=== PATIENT | male | born 2000 | race Caucasian/White ===

== ENCOUNTER 2018-05-24 01:04 | Inpatient (IN) | payer OTHER ==
[2018-05-24] VITALS (7 sets, daily range): BP systolic 124–131; BP diastolic 58–73
[~2018-05-24] VITALS: Ht 177.8 cm; Wt 75.3 kg
[~2018-05-24 01:04] MED LIST: [UNRECOGNIZED DRUG - OTHER]; [UNRECOGNIZED DRUG - OTHER]
[2018-05-24] MEDS ORDERED: ONDANSETRON HCL INJ 2 MG/ML VIAL IV STA (01:20)
[2018-05-24] MEDS ORDERED: SODIUM CHLORIDE 0.9% 1000ML 1,000 ML IV STA ×2 (01:20→02:16)
[2018-05-24] MEDS ORDERED: PANTOPRAZOLE 40 MG 10ML VIAL IV STA (01:20)
[2018-05-24] MEDS ORDERED: MORPHINE SULFATE 2 MG/ML SYR IV STA (01:20)
[2018-05-24 01:45] LABS: CLARITY,URINE CLEAR (CLEAR); COLOR,URINE AMBER (YELLOW)
[2018-05-24 01:46] LABS: BILIRUBIN,URINE 1+ (NEGATIVE); KETONES,URINE 2+ (NEGATIVE); LEUKOCYTE ESTERASE ,URINE NEGATIVE (NEGATIVE); NITRITE,URINE NEGATIVE (NEGATIVE); PROTEIN,URINE DIPSTICK 2+ (NEGATIVE); URINE UROBILINOGEN 0.2 mg/dL (0.2 - 1)
[2018-05-24 01:48] LABS: BACTERIA,URINE RARE /HPF; EPITHELIAL CELLS,URINE FEW /LPF; MUCUS,URINE MANY (RARE); RBC,URINE 0-5 /HPF (0-5); WBC,URINE (MAN) 0-5 /HPF (0-5)
[2018-05-24 01:51] LABS: AMPHETAMINES SCREEN,URINE NEGATIVE (NEGATIVE); BENZODIAZEPINES SCREEN,URINE NEGATIVE (NEGATIVE); PHENCYCLIDINE SCREEN,URINE NEGATIVE (NEGATIVE)
[2018-05-24 01:52] LABS: BASOPHILS % 0.3 % (0.0-1.0); EOSINOPHILS % 0.1 % (0.0-6.0); HEMATOCRIT 44.4 % (38.2-49.6); HEMOGLOBIN 16.2 g/dL (14.0-18.0); LYMPHOCYTES # (AUTO) 0.7 (1.0-3.2); LYMPHOCYTES % 4.7 % (18.0-39.1); MEAN CORPUSCULAR HEMOGLOBIN 30.1 pg (28-32); MEAN CORPUSCULAR HGB CONC 36.5 g/dL (31-35); MEAN CORPUSCULAR VOLUME 82.4 fL (81-99); MONOCYTES # (AUTO) 1.1 (0.2-0.8); MONOCYTES % 7.6 % (4.4-11.3); NEUTROPHILS # (AUTO) 12.5 (2.1-6.9); PLATELET COUNT 241 x10e3/uL (140-360); RED BLOOD COUNT 5.39 x10e6/uL (4.3-5.7); RED CELL DISTRIBUTION WIDTH 11.8 % (11.7-14.4)
[2018-05-24 02:05] LABS: INR 1.15; PROTHROMBIN TIME 13.8 seconds (11.9-14.5)
[2018-05-24 02:06] LABS: PARTIAL THROMBOPLASTIN TIME 26.7 seconds (23.8-35.5)
[2018-05-24 02:07] LABS: ALANINE AMINOTRANSFERASE 28 IU/L (0-55); ALBUMIN 3.6 g/dL (3.5-5.0); ALBUMIN/GLOBULIN RATIO 0.8 (0.8-2.0); ALKALINE PHOSPHATASE 68 IU/L (40-150); AMYLASE 63 U/L (25-125); ANION GAP 21.6 mmol/L (8-16); BLOOD UREA NITROGEN 20 mg/dL (7-26); BUN/CREATININE RATIO 18 (6-25); CALCIUM 10.4 mg/dL (8.4-10.2); CARBON DIOXIDE 25 mmol/L (22-29); CHLORIDE 90 mmol/L (98-107); CREATINE KINASE 631 IU/L (30-200); CREATININE, SERUM 1.12 mg/dL (0.72-1.25); EST GLOMERULAR FILTRATION RATE > 60 ML/MIN (60-); GLUCOSE 147 mg/dL (74-118); LIPASE 52 U/L (8-78); MAGNESIUM 2.3 MG/DL (1.3-2.1); POTASSIUM 3.6 mmol/L (3.5-5.1); SODIUM 133 mmol/L (136-145)
[2018-05-24] MEDS ORDERED: SODIUM CHLORIDE 0.9% 50ML 50 ML ONE (02:18)
[2018-05-24] MEDS ORDERED: IOPAMIDOL 370 MG/ML 200 ML INFUS..BTL INJ ONE (02:18)
--- NOTE | 2018-05-24 02:54 | Diagnostic Imaging Report ---
EXAM: CT ABDOMEN AND PELVIS with IV CONTRAST DATE: 05/24/2018 1:20 AM Time stamp on Exam: 0228 hours INDICATION: Diffuse abdominal pain, nausea, vomiting, diarrhea COMPARISON: None TECHNIQUE: The abdomen and pelvis were scanned using a multidetector helical scanner. Coronal and sagittal reformations were obtained. Routine protocol performed. IV Contrast: 100 cc Isovue-370 Oral Contrast: None CTDIvol has been reviewed. It is below the limits set by the Radiation Protocol Committee (RPC). FINDINGS: LOWER THORAX: No consolidations LIVER: No masses BILIARY: The gallbladder is unremarkable. No ductal dilation. SPLEEN: No masses PANCREAS: No masses ADRENALS: No nodules KIDNEYS: Symmetric perfusion. No enhancing masses. No hydronephrosis. GI TRACT: Diffuse small bowel distention. The appendix is dilated to 1.3 cm with an enhancing wall. Foci of free air and fluid around the tip and pelvis. There is a 9 mm appendicolith. VESSELS: Unremarkable PERITONEUM/RETROPERITONEUM: Localized free air and fluid around the appendix and pelvis. LYMPH NODES: Reactive right lower quadrant lymphadenopathy. REPRODUCTIVE ORGANS: Unremarkable BLADDER: Unremarkable SOFT TISSUES: Unremarkable BONES: No suspicious bone lesions. IMPRESSION: Perforated appendicitis with unorganized air and fluid around the appendix tip and pelvis. Significant reactive small bowel ileus. Findings discussed with Dr. Mendez 05/24/2018 at 0244 hrs. Signed by: Dr. Jessica Florez M.D. on 05/24/2018 2:51 AM
[2018-05-24] MEDS: PIPERACILLIN/TAZO 4.5 GM 100 ML IV SCH ×4 (03:14→17:09)
[2018-05-24] MEDS ORDERED: DEXTROAMP-AMPHE20 MG PO (03:21)
[2018-05-24] MEDS: SODIUM CHLORIDE 0.9% 1000ML 1,000 ML IV SCH ×4 (03:58→19:37)
--- NOTE | 2018-05-24 05:24 | Diagnostic Imaging Report ---
EXAM: CHEST SINGLE (PORTABLE), AP 1 view INDICATION: Abdominal pain, perforated appendicitis COMPARISON: None FINDINGS: LINES/TUBES: None LUNGS: No consolidations or edema. PLEURA: No effusions or pneumothorax. HEART AND MEDIASTINUM: Normal size and contour. BONES AND SOFT TISSUES: No acute findings. IMPRESSION: No acute thoracic abnormality. Signed by: Dr. Jessica Florez M.D. on 05/24/2018 5:21 AM
[2018-05-24] MEDS: ONDANSETRON HCL INJ 2 MG/ML VIAL IV PRN ×4 (06:40→21:07)
[2018-05-24 09:16] LABS: CREATINE KINASE 384 IU/L (30-200)
[2018-05-24] MEDS: MORPHINE SULFATE 2 MG/ML SYR IV PRN ×3 (09:40→21:07)
[2018-05-24] MEDS ORDERED: BUPIVACAINE HCL 0.5% INJ 30 ML VIAL INJ ONE (12:03)
[2018-05-24] MEDS ORDERED: BACITRACIN 50,000 UNIT VIAL ONE (12:04)
[2018-05-24] MEDS ORDERED: ACETAMINOPHEN 1000 MG/100 ML IV ONE (14:52)
[2018-05-24] MEDS ORDERED: PROPOFOL IV EMULSION 10 MG/ML 20 ML VIAL ONE (14:52)
[2018-05-24] MEDS ORDERED: ONDANSETRON HCL INJ 2 MG/ML VIAL ONE (14:52)
[2018-05-24] MEDS ORDERED: SEVOFLURANE INHAL SOLN 250 ML PEN BTL ONE (14:52)
[2018-05-24] MEDS ORDERED: DEXAMETHASONE SOD PHOS INJ 4 MG/ML VIAL ONE (14:52)
[2018-05-24] MEDS ORDERED: LIDOCAINE HCL 2% LOCAL INJ 5 ML SDV VIAL INJ ONE (14:52)
[2018-05-24] MEDS ORDERED: ROCURONIUM BROMIDE 10 MG/ML 5ML VIAL ONE (14:52)
[2018-05-24] MEDS ORDERED: PROMETHAZINE HCL (IM) 25 MG/ML VIAL ONE (15:05)
[2018-05-24] MEDS ORDERED: FENTANYL CITRATE/PF 100MCG/2 ML INJ ONE (15:18)
[2018-05-24] MEDS ORDERED: MIDAZOLAM HCL 2 MG/2 ML VIAL ONE (15:18)
[2018-05-24] MEDS ORDERED: MEPERIDINE HCL INJ 50 MG/ML INJ ONE (15:31)
[2018-05-24] MEDS ORDERED: METOCLOPRAMIDE HCL 10 MG/2ML VIAL ONE (15:32)
[2018-05-24 19:47] LABS: CREATINE KINASE MB 0.9 ng/mL (0-5.0)
--- NOTE | 2018-05-24 20:26 | History and Physical ---
CHIEF COMPLAINT: Abdominal pain. HISTORY OF PRESENT ILLNESS: The patient is an 17-year-old male with a 5-day history of pain in the lower abdomen with nausea and anorexia with fevers. No diarrhea. PAST MEDICAL HISTORY: Unremarkable for chronic illness. SURGICAL HISTORY: Negative. ALLERGIES: HE HAS NO DRUG ALLERGIES. SOCIAL HISTORY: No history of smoking, alcohol abuse. REVIEW OF SYSTEMS: As in HPI. PHYSICAL EXAMINATION VITAL SIGNS: Stable. Afebrile. GENERAL: He is awake, alert and in moderate to severe discomfort. HEENT: Sclerae are nonicteric. NECK: Supple. LUNGS: Clear. HEART: Regular rate and rhythm. ABDOMEN: Soft with guarding and tenderness in the lower abdomen with rebound in both lower quadrants. EXTREMITIES: Without cyanosis or edema. White cell count is 14,000, hemoglobin 16. Creatinine 1.1. CT scan showed evidence of perforation of the appendix with air and fluid in the pelvis. ASSESSMENT: Perforation of the appendix with abscess formation. PLAN: Laparoscopic and possible open appendectomy. All attendant risks discussed with the patient and family. Job#: [id number] MA
--- NOTE | 2018-05-24 21:21 | Operative Report ---
DATE OF PROCEDURE: May 24, 2018 PREOPERATIVE DIAGNOSIS: Appendicitis. POSTOPERATIVE DIAGNOSIS: Perforated appendicitis with abscess formation. OPERATIVE PROCEDURE: Laparoscopic appendectomy, drainage of abscess. [employer]: None. ANESTHESIA: General endotracheal, Dr. Robledo. INDICATIONS: A 17-year-old male with 5-day history of pain in the lower abdomen, and anorexia, fever, and chills. Patient was found on CT scan to have a ruptured appendix with abscess formation. Patient had consented for laparoscopic, possible open appendectomy with all attendant risks discussed. PROCEDURE FINDINGS: Ruptured appendix in the midbody with an abscess in the right lower quadrant area. DESCRIPTION: The patient brought to the OR intubated. Abdomen prepped with alcohol and draped in sterile fashion. An infraumbilical incision was made and a 12-mm port inserted. Insufflation begun under direct vision, other ports were placed in the right upper quadrant and suprapubic area. Laparoscopic examination revealed a phlegmon in the right lower quadrant with small bowel, colon, and omentum were noted. We proceeded to identify the appendix in the right lower quadrant in the middle of the phlegmon. It was noted to be perforated at midpoint with large abscess cavity in the phlegmon, which was irrigated and suctioned out. The neck of the appendix was isolated, transected with Endo SUDHEER stapler blue load in the mesoappendix controlled with the LigaSure instrument. Appendix was placed in Endopouch and retrieved out the peritoneal cavity. We proceeded to dissect the interlooped adhesions and irrigate to remove all abscess collection in the pelvic area and left a 15-Japanese Jorgito drain in the operative field near the cecum and taken out through the suprapubic port site. We then removed all ports under direct vision. Fascial closure with 0-Vicryl. Skin was closed with subcuticular stitch. Patient was extubated, transported to recovery room. Estimated blood loss 30 mL. Job#: [id number] CQ
[2018-05-25] VITALS (8 sets, daily range): BP systolic 104–123; BP diastolic 57–74
[2018-05-25] MEDS: PIPERACILLIN/TAZO 4.5 GM 100 ML IV SCH ×4 (00:05→17:15)
[2018-05-25 05:32] LABS: BASOPHILS % 0.2 % (0.0-1.0); EOSINOPHILS % 0.4 % (0.0-6.0); HEMATOCRIT 37.3 % (38.2-49.6); LYMPHOCYTES # (AUTO) 0.7 (1.0-3.2); LYMPHOCYTES % 8.7 % (18.0-39.1); MEAN CORPUSCULAR HEMOGLOBIN 29.6 pg (28-32); MEAN CORPUSCULAR HGB CONC 34.9 g/dL (31-35); MONOCYTES # (AUTO) 0.8 (0.2-0.8); MONOCYTES % 9.1 % (4.4-11.3); NEUTROPHILS # (AUTO) 6.9 (2.1-6.9); PLATELET COUNT 184 x10e3/uL (140-360); RED BLOOD COUNT 4.39 x10e6/uL (4.3-5.7); RED CELL DISTRIBUTION WIDTH 12.1 % (11.7-14.4)
[2018-05-25 05:55] LABS: ALANINE AMINOTRANSFERASE 20 IU/L (0-55); ALBUMIN 2.3 g/dL (3.5-5.0); ALBUMIN/GLOBULIN RATIO 0.8 (0.8-2.0); ALKALINE PHOSPHATASE 40 IU/L (40-150); ANION GAP 12.7 mmol/L (8-16); BLOOD UREA NITROGEN 11 mg/dL (7-26); BUN/CREATININE RATIO 13 (6-25); CALCIUM 8.3 mg/dL (8.4-10.2); CARBON DIOXIDE 28 mmol/L (22-29); CHLORIDE 100 mmol/L (98-107); CREATININE, SERUM 0.83 mg/dL (0.72-1.25); EST GLOMERULAR FILTRATION RATE > 60 ML/MIN (60-); GLUCOSE 110 mg/dL (74-118); POTASSIUM 3.7 mmol/L (3.5-5.1); SODIUM 137 mmol/L (136-145)
[2018-05-25] MEDS: ONDANSETRON HCL INJ 2 MG/ML VIAL IV PRN ×2 (05:55→13:25)
[2018-05-25] MEDS: MORPHINE SULFATE 2 MG/ML SYR IV PRN (05:55)
[2018-05-25] MEDS: SODIUM CHLORIDE 0.9% 1000ML 1,000 ML IV SCH ×2 (06:22→13:02)
[2018-05-25] MEDS: KETOROLAC TROMETHAMINE 30 MG/ML VIAL IV PRN ×2 (08:40→18:26)
[2018-05-26] VITALS (7 sets, daily range): BP systolic 104–133; BP diastolic 58–66
[2018-05-26] MEDS: PIPERACILLIN/TAZO 4.5 GM 100 ML IV SCH ×4 (00:43→18:35)
[2018-05-26] MEDS: SODIUM CHLORIDE 0.9% 1000ML 1,000 ML IV SCH ×4 (00:43→22:22)
[2018-05-26] MEDS: KETOROLAC TROMETHAMINE 30 MG/ML VIAL IV PRN (01:10)
[2018-05-26] MEDS ORDERED: LOPERAMIDE HCL 2 MG CAP PO PRN (13:45)
[2018-05-26] MEDS ORDERED: MORPHINE SULFATE INJ 4 MG/ML INJ IV PRN (16:00)
[2018-05-27] VITALS (8 sets, daily range): BP systolic 113–128; BP diastolic 55–70
[2018-05-27] MEDS: PIPERACILLIN/TAZO 4.5 GM 100 ML IV SCH ×5 (00:04→23:13)
[2018-05-27] MEDS: ONDANSETRON HCL INJ 2 MG/ML VIAL IV PRN (02:21)
[2018-05-27] MEDS: SODIUM CHLORIDE 0.9% 1000ML 1,000 ML IV SCH ×4 (05:02→23:13)
[2018-05-27] MEDS: KETOROLAC TROMETHAMINE 30 MG/ML VIAL IV PRN (21:58)
[2018-05-28] VITALS: BP 107/53
[2018-05-28] MEDS: PIPERACILLIN/TAZO 4.5 GM 100 ML IV SCH (06:18)
[2018-05-28 07:08] VITALS: BP 119/59
[2018-05-28] MEDS: SODIUM CHLORIDE 0.9% 1000ML 1,000 ML IV SCH (08:28)
[2018-05-28] MEDS ORDERED: TYLENOL WITH C1 EACH PO (09:55)
[2018-05-28] MEDS ORDERED: BACTRIM DS TAB1 EACH PO (09:56)
== END 2018-05-28 10:38 | disposition home or self-care (01) | DRG 340 ==
LOC: ER 01:04 → ERHOLD 03:42 → MED/SURG 04:08
PROVIDERS: ADMIT Surgery; ATTEND Surgery
PROC: 0W9G40Z Drainage of Peritoneal Cavity with Drainage Device, Percutaneous Endoscopic Approach (ICD-10-PCS; 2018-05-24)
PROC: 0DTJ4ZZ Resection of Appendix, Percutaneous Endoscopic Approach (ICD-10-PCS; principal; 2018-05-24 12:10)
DX: K35.2 Acute appendicitis with generalized peritonitis (principal); R63.0 Anorexia; Z68.23 Body mass index [BMI] 23.0-23.9, adult
CPT/HCPCS: 36415; 71045; 74177; 80053; 80307; 81001; 82150; 82550; 82553; 83690; 83735; 84484; 85025; 85610; 85730; 87086; 87493; 88304; 93005; 99284; J1100; J1885; J2001; J2175; J2250; J2270; J2405; J2543; J2550; J2765; J7030; Q9967